=== PATIENT | male | born 1955 | race Caucasian/White ===

== ENCOUNTER 2016-11-03 19:37 | Observation (INO) | payer BC ==
--- NOTE | 2016-11-03 19:40 | PDOC ---
History of Present Illness <Nina Javed - Last Filed: 11/03/16 21:43> - General History Source: Patient Exam Limitations: No Limitations <AnkitapaoloMaríakelley Catrachito - Last Filed: 11/03/16 22:52> - General Chief Complaint: Syncope/Near Syncope Stated Complaint: FAINTED Time Seen by Provider: 11/03/16 19:40 - History of Present Illness Initial Comments: 11/03/16 20:23 The patient is a 61 year old male, with no significant past medical history, who presents to the emergency department with daughter s/p near-syncopal episode today. The patient states he was sitting in the sun watching a football game for 3.5 hours. He states he stood up and felt woozy. The patient presents with his daughter who reports hearing a thud and seeing her father passed out on the floor. The patient's daughter states he was out of it and sweaty when she walked over to him on the floor. He states he had not eaten lunch today prior to attending the football game. The patient denies any symptoms at this time. He denies head trauma. He reports a similar episode in the past after prolonged heat exposure. He denies chest pain, shortness of breath, headache and dizziness. He denies fever, chills, nausea, vomit, diarrhea and constipation. He denies dysuria, frequency, urgency and hematuria. PAST MEDICAL HISTORY: no significant history PAST SURGICAL HISTORY: no significant history FAMILY HISTORY: no pertinent history SOCIAL HISTORY: Pt lives with family and is employed. MEDICATIONS: reviewed ALLERGIES: As per nursing notes Adult ROS General: (+) syncopal episode. No fevers or chills, no weakness, no weight loss HEENT: No change in vision. No sore throat,. No ear pain CardioVascular: No chest pain or shortness of breath Respiratory:No cough, or wheezing. Gastrointestinal: no nausea, vomiting, diarrhea or constipation, No rectal bleeding Genitourinary: No dysuria, hematuria, or frequency Musculoskeletal: No joint or muscle pain or swelling Neurologic: (+) momentary loss of consciousness. No headache, vertigo, dizziness Psychiatric: nor depression Skin: No rashes or easy bruising Endocrine: no increased thirst or abnormal weight change Allergic: no skin or latex allergy All other systems reviewed and normal Adult Exam: General: Well-nourished well-developed individual, no acute distress HEENT: Throat: Normal, tonsils normal, no erythema or exudate Neck: Supple, no meningeal signs, no lymphadenopathy Eyes::Pupils equal reactive and round, extraocular motion intact Chest: Nontender to palpation Cardiac: S1-S2 normal, regular rate and rhythm, no murmurs rubs or gallops Respiratory: Lungs clear to auscultation bilateral Abdomen: Soft, nondistended, normal bowel sounds, nontender to palpation diffusely Extremities: Warm, dry, no cyanosis, clubbing, or edema Skin: No rashes Neuro: Alert and oriented x3, nonfocal exam, grossly intact, normal gait Psych: Normal mood and affect (Nina Javed) 11/03/16 22:03 A portion of this note was documented by scribe services under my direction. I have reviewed the details of the note, within reason, and agree with the documentation. The case summary and management plan written by me. Assessment and plan: This is a 60-year-old male who comes in status post syncope /near syncope type episode. Patient was noted to have a sugar of 539. In further discussion with patient he initially said that he had no medical history but then admitted to having a history of a prediabetic condition but had lost a significant amount of weight and had been taken off of his type II diabetic medications and had not been on them for several years. Patient said he had recently gained back most of the weight and had not followed up with his doctor for several months however had been having polyuria and polydipsia. Patient's anion gap is 8 Patient's sodium is 128 but when corrected for his hyperglycemia it is 135. Patient otherwise does not have a mildly elevated white count of 11.4 with 84% segs. Patient is afebrile and has no complaints suggestive of a infectious nature Patient EKG is normal Patient's chest x-ray shows no acute pathology Patient started on an insulin drip at 0.1 units per KG per hour. Patient will be admitted to an observation bed overnight for stabilization of his glucose. Patient lives in [place] and plans to drive to [place] tomorrow and follow-up with his doctor Saturday morning. (Karthik Moreno I) Past History <Nina Javed - Last Filed: 11/03/16 21:43> <Karthik Moreno I - Last Filed: 11/03/16 22:52> - Past Medical History Allergies/Adverse Reactions: Allergies Allergy/AdvReac Type Severity Reaction Status Date / Time No Known Allergies Allergy Verified 11/03/16 19:42 Home Medications: Ambulatory Orders Candesartan Cilexetil [Atacand -] 16 mg PO DAILY 11/03/16 Citalopram Hydrobromide [Celexa -] 20 mg PO DAILY 11/03/16 - Vital Signs Last Vital Signs Temp Pulse Resp BP Pulse Ox 97.3 F L 80 15 134/77 96 11/03/16 19:37 11/03/16 21:45 11/03/16 21:45 11/03/16 21:45 11/03/16 21:45 Heart Score/ECG Review #1 ECG reviewed & interpreted by me at: 20:10 General ECG Interpretation: Sinus Rhythm, Normal Rate (100bpm), Normal Intervals <Nina Javed - Last Filed: 11/03/16 21:43> ED Treatment Course - LABORATORY CBC & Chemistry Diagram: 11/03/16 21:00 11/03/16 21:00 <Nina Javed - Last Filed: 11/03/16 21:43> - LABORATORY CBC & Chemistry Diagram: 11/03/16 21:00 11/03/16 21:00 <Karthik Moreno I - Last Filed: 11/03/16 22:52> - ADDITIONAL ORDERS Additional order review: Laboratory Results 11/03/16 11/03/16 11/03/16 21:45 21:00 21:00 Sodium 128 L Potassium 4.5 Chloride 96 L Carbon Dioxide 24 Anion Gap 8 BUN 24 H Creatinine 1.2 Creat Clearance w eGFR > 60 Random Glucose 539 H* Calcium 9.6 Total Bilirubin 1.0 AST 23 ALT 23 Alkaline Phosphatase 79 Creatine Kinase 59 Troponin I < 0.03 L B-Natriuretic Peptide 61.79 Total Protein 6.6 Albumin 4.0 11/03/16 21:00 RBC 5.14 MCV 88.7 MCHC 34.7 RDW 12.1 MPV 9.8 Neutrophils % 84.9 H Lymphocytes % 9.7 Monocytes % 4.9 Eosinophils % 0.3 Basophils % 0.2 - RADIOLOGY Radiology Studies Ordered: Category Date Time Status HEAD CT WITHOUT CONTRAST [CT] Stat CT Scan 11/03/16 19:41 Completed CHEST X-RAY PORTABLE* [RAD] Stat Radiology 11/03/16 19:41 Taken Radiograph Interpretation: 11/03/16 21:43 EXAM: CT head without contrast IMAGES: 77 DATE OF EXAM: 2016-11-03 20:15:45 COMPARISON: None. FINDINGS: There is cerebral atrophy. Very mild chronic microvascular ischemic changes are suggested. No acute intracranial hemorrhage or acute infarction. The visualized aspect of the paranasal sinuses and mastoid air cells are unremarkable. Surgical changes in right orbit. No acute fracture. Read by: Brenden Coon MD 11/03/2016 21:14 EST (Nina Javed) - Medications Given in the ED: ED Medications Discontinued Medications Generic Name Dose Route Start Last Admin Trade Name Freq PRN Reason Stop Dose Admin Sodium Chloride 1,000 mls @ 1,000 mls/hr 11/03/16 20:34 11/03/16 21:00 Normal Saline - IV 11/03/16 21:33 1,000 mls/hr .Q1H ONE Administration *DC/Admit/Observation/Transfer <Nina Javed - Last Filed: 11/03/16 21:43> - Discharge Dispostion Admit: Yes <Karthik Moreno I - Last Filed: 11/03/16 22:52> Diagnosis at time of Disposition: Dehydration Hyperglycemia due to type 2 diabetes mellitus Qualifiers: Diabetes mellitus half-way insulin use: without half-way use Qualified Code(s ): E11.65 - Type 2 diabetes mellitus with hyperglycemia Syncope Qualifiers: Syncope type: heat syncope Encounter type: initial encounter Qualified Code(s) : T67.1XXA - Heat syncope, initial encounter - Discharge Dispostion Disposition: HOME Condition at time of disposition: Good Decision to Admit order Date/Time: Decision to Admit Order Category Date Time Status Decision to Admit to Hospital Routine Admission 11/03/16 22:20 Active - Attestations Scribe Attestion: 11/03/16 20:25 Documentation prepared by Nina Javed, acting as associate medical director for Karthik Moreno MD (Nina Javed)
[2016-11-03] MEDS ORDERED: SODIUM CHLORIDE 1,000 ML IV ONE (20:34)
[2016-11-03 21:28] LABS: ALK PHOS 79 U/L (32-92); ANION GAP 8 (8-16); CALCIUM 9.6 mg/dl (8.4-10.2); CO2 24 mmol/L (22-28); CREATININE 1.2 mg/dl (0.6-1.3); SGOT/AST 23 U/L (10-42); SGPT/ALT 23 U/L (10-40); TOT PROT 6.6 g/dl (6.4-8.3)
[2016-11-03 21:30] LABS: GLUCOSE,RANDOM 539 mg/dl (74-106)
[2016-11-03 21:39] LABS: CPK 59 IU/L (39-308)
[2016-11-03 21:45] LABS: BASOPHIL 0.2 % (0-2.0); EOSINOPHIL 0.3 % (0-4.5); MCH 30.8 pg (25.7-33.7); MCHC 34.7 g/dl (32.0-35.9); MEAN CELL VOLUME 88.7 fl (80-96); MEAN PLT VOLUME 9.8 fl (7.5-11.1); NEUTROPHILS 84.9 % (42.8-82.8); PLATELET COUNT 228 K/MM3 (134-434); RDW 12.1 % (11.9-15.9); WHITE BLOOD COUNT 11.3 K/mm3 (4.0-10.8)
[2016-11-03] MEDS ORDERED: INSULIN REGULAR HUMAN 100 UNITS/ML *VIAL ONE (22:12)
[2016-11-03 22:18] LABS: TROPONIN I (DFP) < 0.03 ng/ml (0.03-0.50)
[2016-11-03] MEDS: INSULIN REGULAR 100 UNITS in SODIUM CHLORIDE 99 ML IVPB SCH ×2 (22:19→23:25)
[2016-11-03] MEDS ORDERED: ACETAMINOPHEN 325 MG TABLET (FP) PO PRN (23:12)
[2016-11-03] MEDS ORDERED: ONDANSETRON 4 MG/2 ML VIAL IVPB PRN (23:12)
[2016-11-03] MEDS ORDERED: SODIUM CHLORIDE 1,000 ML IV SCH (23:15)
[2016-11-03] MEDS ORDERED: VALSARTAN 160 MG TABLET (UD) PO SCH (23:30)
--- NOTE | 2016-11-03 23:59 | HP ---
Admitting History and Physical - Admission Chief Complaint: LH, fainting History of Present Illness: 61 yo obese m w hx of pre-diabetes, htn, kidney stones, cholecystectomy, detached retina repair, cataracts surgery, depression presents for syncope. pt reports he was at a foot ball game sitting in sun for ~3.5 hours. he reports skipping lunch today. He states after game he leaned up against a tree and then fainted. He did not lose consciousness or hit his head. His DTR reports he was sweaty and nauseous during episode. He states after he got home he had an episode of watery diarrhea and then started to feel better after he drank some orange juice and soda. he reports he decided to come to the ER after his daughter voiced some concern. he denies prodrome of sob, cp, headache, numbness. He reports having a syncope episode last year Aug where he was found at that time to be hypoglycemic. he reports being on diabetic medications including metformin and two others for which the name eludes him but having stopped the meds after losing weight. He reports gaining a few pounds in the last year also having increased stress from loss of his . He reports having some increased urination, and thirst lately and spurts of increased hunger. He denies sick contacts. Pmh/lmu-vsb-yfbtuyar, htn, kidney stones, cholecystectomy, detached retina repair, cataracts surgery, depression Social- former smoker famhx- [place] Ros neg except for HPI PCP- Dr [facility] Physical gen- obese in nad alert hent- at/nc, katya, neck supple, trachea midline resp lungs ctab, no cough, no cyanosis, no rales, no wheeze, no accessory muscle use cards- rrr, no jvd, no leg edema, s1s2 heard gi- obese, no guarding, no distention, bs +, no rigidity musk- normal bue/ble, no back pain skin- abrasion to right elbow psych- cooperative, no agitation neuro- cn2-12 grossly intact, no ftn ataxia, gait not assessed, no facial droop , no seizures Prob list Syncope htn diabetes hyperglycemia hyponatremia depression a/p- 61 yo obese m w hx of pre-diabetes, htn, kidney stones, cholecystectomy, detached retina repair, cataracts surgery, depression presents for syncope. 1. Syncope in setting of possible dehydration ddx: arrhythmia, vasovagal, orthostasis CTH negative 1st trop negative Cxr appear clear by my eye FU echo Cardiac tele Cards consult Orthostatic vitals 2. DM w hyperglycemia Given IVF and IV insulin in Er Reports being off DM meds since last year SSI Monitor BGM FU A1c 3. Depression Cont home meds 4. Hyponatremia likely hyperglycemic effect Monitor BMP 5.HTN Cont home meds 6. Leukocytosis likely related to dehydration Monitor labs Dispo- obs for syncope w/u History Source: Patient, Family Member Limitations to Obtaining History: No Limitations - Smoking History Smoking history: Former smoker Have you smoked in the past 12 months: No If you are a former smoker, when did you quit?: 30 YEARS AGO - Alcohol/Substance Use Hx Alcohol Use: Yes (SOCIAL. 1 PER WEEK) Home Medications - Allergies Allergies/Adverse Reactions: Allergies Allergy/AdvReac Type Severity Reaction Status Date / Time No Known Allergies Allergy Verified 11/03/16 19:42 - Home Medications Home Medications: Ambulatory Orders Candesartan Cilexetil [Atacand -] 16 mg PO DAILY 11/03/16 Citalopram Hydrobromide [Celexa -] 20 mg PO DAILY 11/03/16 Metformin HCl [Glucophage] 500 mg PO BID #60 tablet 11/04/16 Physical Examination Vital Signs: Vital Signs Temperature 97.3 F L 11/03/16 19:37 Pulse Rate 80 11/03/16 21:45 Respiratory Rate 15 11/03/16 21:45 Blood Pressure 134/77 11/03/16 21:45 O2 Sat by Pulse Oximetry (%) 96 11/03/16 21:45 Visit type - Emergency Visit Emergency Visit: Yes ED Registration Date: 11/03/16 Care time: The patient presented to the Emergency Department on the above date and was hospitalized for further evaluation of their emergent condition. - New Patient This patient is new to me today: Yes Date on this admission: 11/04/16 - Critical Care Critical Care patient: No
[2016-11-04 00:45] VITALS: BMI 33.6
[2016-11-04] MEDS ORDERED: INSULIN (NOVOLOG) ASPART 100 UNITS/ML 10ML VIAL SQ ONE (01:00)
[2016-11-04] MEDS ORDERED: INSULIN (NOVOLOG) ASPART 100 UNITS/ML 10ML VIAL ONE (01:18)
[2016-11-04 06:42] LABS: BASOPHIL 0.3 % (0-2.0); EOSINOPHIL 1.4 % (0-4.5); MCH 30.5 pg (25.7-33.7); MCHC 34.5 g/dl (32.0-35.9); MEAN CELL VOLUME 88.4 fl (80-96); MEAN PLT VOLUME 9.2 fl (7.5-11.1); NEUTROPHILS 63.5 % (42.8-82.8); PLATELET COUNT 215 K/MM3 (134-434); WHITE BLOOD COUNT 9.1 K/mm3 (4.0-10.0)
[2016-11-04 06:46] LABS: URINE APPEARANCE CLEAR; URINE BILIRUBIN NEGATIVE (NEGATIVE); URINE BLOOD NEGATIVE (NEGATIVE); URINE COLOR STRAW; URINE GLUCOSE (UA) 3+ (NEGATIVE); URINE KETONE NEGATIVE (NEGATIVE); URINE NITRITE NEGATIVE (NEGATIVE); URINE PROTEIN NEGATIVE (NEGATIVE); URINE UROBILINOGEN NEGATIVE mg/dL (0.2-1.0)
[2016-11-04 07:00] VITALS: PULSE 76
[2016-11-04] MEDS ORDERED: INSULIN SLIDING SCALE (NOVOLOG) 1 VIAL SQ SCH (07:00)
[2016-11-04 07:06] LABS: ANION GAP 3 (8-16); CALCIUM 8.7 mg/dL (8.5-10.1); CO2 31 mmol/L (21-32); CREATININE 0.9 mg/dL (0.7-1.3); GLUCOSE,RANDOM 237 mg/dL (74-106); PHOSPHOROUS 3.1 mg/dL (2.5-4.9)
[2016-11-04 07:15] LABS: THYROID STIMULATING HORMONE 1.88 uIU/ml (0.358-3.74)
--- NOTE | 2016-11-04 08:47 | CON.CARD ---
Cardiology Consult (text) - Consultation Consultation Note: cc: syncope hpi: 61 m hx borderline dm, here with syncope. Yesterday pt did not eat, went to watch football game, and was outside in sun for 3 hours. When he stood up he felt dizzy, nausea, and fainted. No cp, sob, palps, pnd, orthopnea, le edema. No hx hrt dz. Lives in [place] and just visiting this weekend. Currently feels well, wants to go home. No hx of syncope. pmh: per hpi psh: cholecystectomy social: ex tob fam: no premature cad, scd ros: per hpi; no diarrhea, cough, dyer, vision changes, nasal congestion, muscle pains, gib, hematuria meds: none taken pe: Vital Signs Period Temp Pulse Resp BP Sys/Henderson Pulse Ox Last 24 Hr 97.9 F-98.9 F 68-82 15-20 119-142/69-88 95-96 nad no jvd rrr s1s2 no mrg cta bl nl eff aaox3 no le e/c/c abd nt nd pos bs no jaundice diaphoresis pos dp pt no carotid bruits Laboratory Last Values WBC 9.1 K/mm3 (4.0-10.0) 11/04/16 05:00 RBC 4.69 M/mm3 (4.00-5.60) 11/04/16 05:00 Hgb 14.3 GM/dL (11.7-16.9) 11/04/16 05:00 Hct 41.5 % (35.4-49) 11/04/16 05:00 MCV 88.4 fl (80-96) 11/04/16 05:00 MCH 30.5 pg (25.7-33.7) 11/04/16 05:00 MCHC 34.5 g/dl (32.0-35.9) 11/04/16 05:00 RDW 13.0 % (11.9-15.9) 11/04/16 05:00 Plt Count 215 K/MM3 (134-434) 11/04/16 05:00 MPV 9.2 fl (7.5-11.1) 11/04/16 05:00 Neutrophils % 63.5 % (42.8-82.8) 11/04/16 05:00 Lymphocytes % 26.0 % (8-40) 11/04/16 05:00 Monocytes % 8.8 % (3.8-10.2) 11/04/16 05:00 Eosinophils % 1.4 % (0-4.5) 11/04/16 05:00 Basophils % 0.3 % (0-2.0) 11/04/16 05:00 Sodium 139 mmol/L (136-145) 11/04/16 05:00 Potassium 4.5 mmol/L (3.5-5.1) 11/04/16 05:00 Chloride 105 mmol/L (98-107) 11/04/16 05:00 Carbon Dioxide 31 mmol/L (21-32) 11/04/16 05:00 Anion Gap 3 (8-16) L 11/04/16 05:00 BUN 18 mg/dL (7-18) 11/04/16 05:00 Creatinine 0.9 mg/dL (0.7-1.3) 11/04/16 05:00 Creat Clearance w eGFR > 60 (>60) 11/03/16 21:00 POC Glucometer 232 UNITS (()) 11/04/16 07:05 Random Glucose 237 mg/dL (74-106) H 11/04/16 05:00 Hemoglobin A1c % 10.3 % (4.8-6.0) H 11/04/16 05:00 Calcium 8.7 mg/dL (8.5-10.1) 11/04/16 05:00 Phosphorus 3.1 mg/dL (2.5-4.9) 11/04/16 05:00 Magnesium 2.0 mg/dL (1.8-2.4) 11/04/16 05:00 Total Bilirubin 1.0 mg/dl (0.2-1.0) 11/03/16 21:00 AST 23 U/L (10-42) 11/03/16 21:00 ALT 23 U/L (10-40) 11/03/16 21:00 Alkaline Phosphatase 79 U/L (32-92) 11/03/16 21:00 Creatine Kinase 59 IU/L (39-308) 11/03/16 21:00 Troponin I < 0.02 ng/ml (0.00-0.05) 11/04/16 05:00 B-Natriuretic Peptide 61.79 pg/ml (5-125) 11/03/16 21:45 Total Protein 6.6 g/dl (6.4-8.3) 11/03/16 21:00 Albumin 4.0 g/dl (3.5-5.0) 11/03/16 21:00 TSH 1.88 uIU/ml (0.358-3.74) 11/04/16 05:00 Urine Color Straw 11/04/16 00:15 Urine Appearance Clear 11/04/16 00:15 Urine pH 5.0 (5.0-8.0) 11/04/16 00:15 Ur Specific [place] 1.010 (1.005-1.025) 11/04/16 00:15 Urine Protein Negative (NEGATIVE) 11/04/16 00:15 Urine Glucose (UA) 3+ (NEGATIVE) H 11/04/16 00:15 Urine Ketones Negative (NEGATIVE) 11/04/16 00:15 Urine Blood Negative (NEGATIVE) 11/04/16 00:15 Urine Nitrite Negative (NEGATIVE) 11/04/16 00:15 Urine Bilirubin Negative (NEGATIVE) 11/04/16 00:15 Urine Urobilinogen Negative mg/dL (0.2-1.0) 11/04/16 00:15 cxr: clear lungs ecg: sr, nl intervals, no ischemic changes tele: sr a/p: 61 m hx borderline dm, here with syncope. syncope: -no signs acs, chf, arrhythmia, valve dz -tele benign -likely vagal episode -pt instructed to stay hydrated and have adequate po intake especially when in the heat -he will follow up with his PMD in [place] tomorrow -cardiac friedman stable for dc
[2016-11-04 09:42] VITALS: BP 119/69; TEMP 98.8
--- NOTE | 2016-11-04 09:50 | DS ---
Physical Exam: SUBJECTIVE: Patient seen and examined. Feeling well. No dizziness/ lightheadedness, nausea/vomiting, chest pain, SOB, or any other symptoms. Has been ambulating to bathroom without any symptoms. OBJECTIVE: Vital Signs Period Temp Pulse Resp BP Sys/Henderson Pulse Ox Last 24 Hr 97.9 F-98.9 F 68-76 17-20 119-142/69-87 96-96 PHYSICAL EXAM GENERAL: The patient is awake, alert, and fully oriented, in no acute distress. HEAD: Normal with no signs of trauma. EYES: PERRL, extraocular movements intact, sclera anicteric, conjunctiva clear. ENT: Ears normal, nares patent, oropharynx clear without exudates, moist mucous membranes. NECK: Trachea midline, full range of motion, supple. LUNGS: Breath sounds equal, clear to auscultation bilaterally, no wheezes, no crackles, no accessory muscle use. HEART: Regular rate and rhythm, S1, S2 without murmur, rub or gallop. ABDOMEN: Soft, nontender, nondistended, normoactive bowel sounds, no guarding, no rebound, no hepatosplenomegaly, no masses. EXTREMITIES: 2+ pulses, warm, well-perfused, no edema. NEUROLOGICAL: Cranial nerves II through XII grossly intact. Normal speech, gait not observed. PSYCH: Normal mood, normal affect. SKIN: Warm, dry, normal turgor, no rashes or lesions noted. LABS Laboratory Results - last 24 hr 11/03/16 11/04/16 11/04/16 23:21 00:15 01:10 WBC RBC Hgb Hct MCV MCH MCHC RDW Plt Count MPV Neutrophils % Lymphocytes % Monocytes % Eosinophils % Basophils % Sodium Potassium Chloride Carbon Dioxide Anion Gap BUN Creatinine POC Glucometer 340 363 Random Glucose Hemoglobin A1c % Calcium Phosphorus Magnesium Troponin I TSH Urine Color Straw Urine Appearance Clear Urine pH 5.0 Urine Protein Negative Urine Glucose (UA) 3+ H Urine Ketones Negative Urine Blood Negative Urine Nitrite Negative Urine Bilirubin Negative Urine Urobilinogen Negative 11/04/16 11/04/16 11/04/16 02:47 05:00 05:00 WBC 9.1 RBC 4.69 Hgb 14.3 Hct 41.5 MCV 88.4 MCH 30.5 MCHC 34.5 RDW 13.0 Plt Count 215 MPV 9.2 Neutrophils % 63.5 Lymphocytes % 26.0 Monocytes % 8.8 Eosinophils % 1.4 Basophils % 0.3 Sodium 139 Potassium 4.5 Chloride 105 Carbon Dioxide 31 Anion Gap 3 L BUN 18 Creatinine 0.9 POC Glucometer 288 Random Glucose 237 H Hemoglobin A1c % Calcium 8.7 Phosphorus 3.1 Magnesium 2.0 Troponin I TSH 1.88 Urine Color Urine Appearance Urine pH Urine Protein Urine Glucose (UA) Urine Ketones Urine Blood Urine Nitrite Urine Bilirubin Urine Urobilinogen 11/04/16 11/04/16 11/04/16 05:00 05:00 07:05 WBC RBC Hgb Hct MCV MCH MCHC RDW Plt Count MPV Neutrophils % Lymphocytes % Monocytes % Eosinophils % Basophils % Sodium Potassium Chloride Carbon Dioxide Anion Gap BUN Creatinine POC Glucometer 232 Random Glucose Hemoglobin A1c % 10.3 H Calcium Phosphorus Magnesium Troponin I < 0.02 TSH Urine Color Urine Appearance Urine pH Urine Protein Urine Glucose (UA) Urine Ketones Urine Blood Urine Nitrite Urine Bilirubin Urine Urobilinogen HOSPITAL COURSE: This is a 61 year old male with a history of depression and HTN , previously diagnosed with diabetes (was on 3 oral meds at that time: metformin , glyburide, and ?; then taken off after losing weight), who presented to the ED after a near syncopal episode in the context of standing up after watching a football game out in the sun for 3 hours on a warm day. He did not completely lose consciousness and did not sustain any injuries. He did not have chest pain , shortness of breath, focal weakness, or any other symptoms. He was given IV hydration and placed in observation. EKG: NSR at 100bpm CXR: No acute process HCT: No acute intracranial pathology Labs were notable for: -Trop neg x 2 -WBC initially mildly elevated at 11.3, normalized to 9.1 -Glucose elevated at 237, HgbA1C 10.3%, UA with 3+ glucose Orthostatics negative. Today, the patient is asymptomatic and is ambulating without any lightheadedness. Plan: -Re-start Metformin at low dose -Patient to follow up with PCP in [place] (he is here visiting his daughter) as soon as possible -Return precautions reviewed Date of Admission:11/03/16 Date of Discharge: 11/04/16 Minutes to complete discharge: 35 Discharge Summary Reason For Visit: FAINTED Current Active Problems Hyperglycemia due to type 2 diabetes mellitus (Chronic) Condition: Improved - Instructions Diet, Activity, Other Instructions: -Rest and stay well-hydrated -Continue all of your prescribed medications and start taking Metformin twice daily -Review the diabetic diet (instructions enclosed) -Follow up with your doctor in [place] this week -Return here for chest pain, shortness of breath, weakness, repeated episodes of fainting/near fainting, or any other concerning symptoms Disposition: HOME - Home Medications Comprehensive Discharge Medication List: Ambulatory Orders Candesartan Cilexetil [Atacand -] 16 mg PO DAILY 11/03/16 Citalopram Hydrobromide [Celexa -] 20 mg PO DAILY 11/03/16 Metformin HCl [Glucophage] 500 mg PO BID #60 tablet 11/04/16 This patient is new to me today: Yes Date on this admission: 11/04/16 Emergency Visit: Yes ED Registration Date: 11/03/16 Care time: The patient presented to the Emergency Department on the above date and was hospitalized for further evaluation of their emergent condition. Critical Care patient: No - Discharge Referral Referred to [facility] Med P.C.: No
[2016-11-04 09:53] LABS: URINE LEUK ESTERASE Negative (NEGATIVE)
[2016-11-04] MEDS ORDERED: VALSARTAN 160 MG TABLET (UD) PO SCH (10:00)
[2016-11-04] MEDS ORDERED: CITALOPRAM HYDROBROMIDE 20 MG TABLET (FP) PO SCH (10:00)
[2016-11-04] MEDS ORDERED: metFORMIN HCL 500 MG TABLET (FP) PO ONE (10:15)
--- NOTE | 2016-11-06 20:49 | EKG ---
Test Reason : Blood Pressure : / mmHG Vent. Rate : 100 BPM Atrial Rate : 100 BPM P-R Int : 166 ms QRS Dur : 106 ms QT Int : 346 ms P-R-T Axes : 060 042 035 degrees QTc Int : 446 ms NORMAL SINUS RHYTHM NORMAL ECG NO PREVIOUS ECGS AVAILABLE BASELINE ARTIFACTS NO CLINICAL INFORMATION IS AVAILABLE REPEAT EKG IF CLINICALLY INDICATED Confirmed by ISA REID MD ([id number]) on 11/06/2016 8:48:41 PM Referred By: GREGG Confirmed By:ISA REID MD
== END 2016-11-04 10:40 | disposition home or self-care (01) ==
LOC: FER 19:37 → FM/S 22:54 → INTOOBSV 22:54
PROVIDERS: ADMIT Internal Medicine; ATTEND Registered Nurse Emergency
PROC: 3E0337Z Introduction of Electrolytic and Water Balance Substance into Peripheral Vein, Percutaneous Approach (ICD-10-PCS; principal; 2016-11-03)
PROC: 3E013VG Introduction of Insulin into Subcutaneous Tissue, Percutaneous Approach (ICD-10-PCS; 2016-11-03)
DX: E86.0 Dehydration (principal); E11.65 Type 2 diabetes mellitus with hyperglycemia; T67.1XXA Heat syncope, initial encounter; X30.XXXA Exposure to excessive natural heat, initial encounter; Y93.89 Activity, other specified; Y92.321 Football field as the place of occurrence of the external cause; E66.9 Obesity, unspecified; Z68.33 Body mass index [BMI] 33.0-33.9, adult; D72.829 Elevated white blood cell count, unspecified; I10 Essential (primary) hypertension; F32.9 Major depressive disorder, single episode, unspecified; Z87.442 Personal history of urinary calculi; Z90.49 Acquired absence of other specified parts of digestive tract; Z87.891 Personal history of nicotine dependence
CPT/HCPCS: 36415; 70450-TC; 71010-TC; 80048; 80053; 81003; 83036; 83735; 83880; 84100; 84443; 84484; 85025; 93005; 99285-25; G0378

== ENCOUNTER 2021-08-27 11:53 | Emergency (ER) | payer BC, OTHER ==
[2021-08-27 12:20] VITALS: BMI 31.4
[2021-08-27] MEDS ORDERED: SODIUM CHLORIDE 0.9% 500 ML INFUS.BAG IV ONE ×2 (12:20→13:30)
[2021-08-27 12:49] LABS: HEMATOCRIT 48.5 % (35.4-49); HEMOGLOBIN 17.1 G/dL (11.7-16.9); MCH 31.7 pg (25.7-33.7); MCHC 35.3 g/dl (32.0-35.9); MEAN CELL VOLUME 89.9 fl (80-96); MEAN PLT VOLUME 8.8 fl (7.5-11.1); PLATELET COUNT 245.4 10^3/uL (134-434); RBC 5.39 10^6/uL (4.00-5.60); RDW 13.9 % (11.9-15.9); WHITE BLOOD COUNT 8.2 10^3/uL (4.0-10.8)
[2021-08-27 13:00] LABS: ALBUMIN 3.9 g/dl (3.4-5.0); BILIRUBIN,TOTAL 2.5 mg/dl (0.2-1); TOT PROT 7.8 g/dl (6.4-8.2)
[2021-08-27 13:09] LABS: PLATELET ESTIMATE ADEQUATE
[2021-08-27 14:00] VITALS: TEMP 98.9
[2021-08-27 17:01] VITALS: BP 145/68; PULSE 86
== END 2021-08-27 16:30 | disposition home or self-care (01) ==
LOC: FER 11:53
DX: E11.65 Type 2 diabetes mellitus with hyperglycemia (principal)
CPT/HCPCS: 36415; 80053; 81003; 81015; 82010; 82962; 85025; 87086; 93005; 99284-25